=== PATIENT | female | born 1970 | race Caucasian/White ===

== ENCOUNTER 2019-10-05 21:41 | Emergency (ER) | payer OTHER, SELFPAY ==
--- NOTE | ~2019-10-05 | CT_ITS ---
EXAMINATION: CT abdomen pelvis wo/w con DATE: 10/06/2019 00:07 INDICATION: Hematuria TECHNIQUE: Computed tomography (CT) of the abdomen and pelvis was performed without and subsequently with 130 cc Omnipaque 350 intravenous contrast. Automated exposure control and iterative reconstructi on technique were employed. Exam dose: 1894.00 mGy-cm total exam DLP. COMPARISON: None. FINDINGS: Mild discoid atelectasis or scarring at the lung bases. Heart size is within normal range. No pericardial or pleural effusion. Moderate size hiatal hernia. Gallbladder is distended. There is a stone at the gallbladder neck and multiple stones within the bod y of the gallbladder. No gallbladder wall thickening. No pericholecystic fluid or stranding. No bile duct or pancreatic duct dilatation. No hepatic or pancreatic or splenic space-occupying mass lesion. Normal morphology of the adrenal gla nds. No urinary tract calculus or hydroureteronephrosis. No renal space occupying mass lesion or filling d efect of the renal collecting systems is detected. Moderate diffuse bladder wall thickening. There is an approximately 3 cm irregular filling defect of the posterior wall of the urinary bladder, with multiple finger-like projections, suspicious for blad quynh neoplasm. Urology consultation is recommended. Normal caliber of the abdominal aorta. No intraperitoneal or retroperitoneal or pelvic mass lesion or adenopathy or ascites is noted otherwise. There is a prominent amount of fecal material in the colon but no bowel obstruction is evident. No in traperitoneal free air. Diffuse idiopathic skeletal hyperostosis of the thoracic spine. Multilevel degenerative disc disease of the lumbar spine. No suspicious osteolytic or osteoblastic lesions are noted. IMPRESSION: Approximately 3 cm irregular filling defect of the posterior wall of the urinary bladder , suspicious for bladder neoplasm. Urology consultation is recommended. Cholelithiasis; the gallbladder is distended, with a stone at the gallbladder neck, but no gallbladde r wall thickening or pericholecystic stranding or fluid. Moderate hiatal hernia Dr. Almonte informed emergency room physician Dr. Niall Jones of the posterior bladder wall mass and recommendation for urology consultation on 10/06/2019 at 0700 hours Reviewed, dictated and finalized at [facility] Reviewed, dictated and finalized at [facility] [employer] IMPRESSION: Approximately 3 cm irregular filling defect of the posterior wall of the urinary bladder, suspicious for bladder neoplasm. Urology consultation i s recommended. Cholelithiasis; the gallbladder is distended, with a stone at the gallbladder n jaron, but no gallbladder wall thickening or pericholecystic stranding or fluid. Moderate hiatal hernia Dr. Almonte informed emergency room physician Dr. Niall Jones of the posterior bladder wall mass and recommendation for urology consultation on 10/06/2019 at 0 700 hours
[2019-10-05 21:42] VITALS: BP 135/85; PULSE 110; RESP 16; TEMP 36.8; O2SAT 100
--- NOTE | 2019-10-05 22:12 | ED.FEMALEGU ---
HPI - Female Genitourinary General Chief complaint: Urogenital-Female Stated complaint: burning urination Time Seen by Provider: 10/05/19 22:12 Source: patient Mode of arrival: ambulatory Limitations: no limitations History of Present Illness HPI Narrative: A 49 y/o female presents to the ED with c/o hematuria and dysuria since 6:00 PM. Pt states the urine is bright red with some clots. Pt's LNMP was 5 days ago. Pt is not on a blood thinner but notes that she takes iron supplements. She denies back pain, ABD pain, N/V, a fever, and a PMHx of a UTI. Onset (ago): hour(s) (6:00 PM) Urinary symptoms: Dysuria and Hematuria Date of Last Menstrual Period: 09/30/19 Related Data Allergies Allergy/AdvReac Type Severity Reaction Status Date / Time No Known Allergies Allergy Verified 09/10/19 10:31 Review of Systems Review of Systems: All systems reviewed & are unremarkable except as noted in HPI and below Constitutional: Comments: Denies: a fever Gastrointestinal: Gastrointestinal: Denies abdominal pain, Denies nausea and Denies vomiting Genitourinary: Genitourinary: Reports hematuria and Reports dysuria Musculoskeletal: Musculoskeletal: Denies back pain PMFSH Past Medical History Medical History (Updated 10/06/19 @ 00:48 by Alisha Lyn MD) Bilateral knee pain Degenerative joint disease of knee HLD (hyperlipidemia) HTN (hypertension) Sinus problem Vision abnormalities Surgical History Surgical History (Updated 10/05/19 @ 22:17 by Mabel Johnson) Previous section Family History Family History Other Diabetes mellitus Hypertension Social History Social History Smoking status: Former smoker Smoking end date: 08/26/97 Alcohol intake: current Comments No PCP on file. Exam Narrative: Exam Narrative: GENERAL: Well-appearing, well-nourished, and in no acute distress. HEAD: Normocephalic, atraumatic EYES: PERRLA and EOMI, conjunctiva clear without discharge THROAT:Mucous membranes moist, Oropharynx normal without erythema, exudate, peritonsillar swelling or fluctuance NECK: Supple, without lymphadenopathy or mass RESPIRATORY: No respiratory distress, Airway patent, Respirations non-labored, Clear to auscultation without rales, rhonchi or wheeze HEART: Regular rate and rhythm. No murmur heard. Normal peripheral pulses. ABDOMEN: Soft, nontender, nondistended, normal active bowel sounds. No masses. No rebound or guarding, No organomegaly. EXTREMITIES: No edema, normal strength with full range of motion. SKIN: Warm, dry, normal color without rash NEURO: Alert and oriented x3. CN 2-12 grossly intact. No focal deficits. PSYCH: Normal mood and affect. Course Reevaluation(s) Reevaluation #1: Patient presented with hematuria. I discussed CT did not show any masses to explain hematuria. Will place on antibiotics a refer to urologist. I also discussed CT showing gallstones. She is asymptomatic at this time for biliary colic. Date: 10/06/19 Time: 00:44 Vital Signs Vital signs: Vital Signs Temperature 98.3 F 10/05/19 21:42 Pulse Rate 110 H 10/05/19 21:42 Respiratory Rate 16 10/05/19 21:42 Blood Pressure 135/85 10/05/19 21:42 Pulse Oximetry 100 10/05/19 21:42 Temperature 98.2 F 10/06/19 01:06 Pulse Rate 88 10/06/19 01:06 Respiratory Rate 16 10/06/19 01:06 Blood Pressure 114/60 10/06/19 01:06 Pulse Oximetry 97 10/06/19 01:06 MDM - Female Genitourinary Lab Data Result diagrams: 10/05/19 22:49 10/05/19 22:49 Labs: Lab Results 10/05/19 10/05/19 10/05/19 Range/Units 22:01 22:49 22:49 WBC 10.3 H (4.5-10.0) K/mm3 RBC 4.13 L (4.2-5.4) M/mm3 Hgb 13.3 (12.0-15.0) g/dL Hct 41.7 (37.0-47.0) % MCV 101.0 H (80-100) fl MCH 32.2 (26-34) pg MCHC 31.9 L (32-36) g/dl RDW 13.3 (11.5-14.5
[2019-10-05 22:14] LABS: Add Urine Microscopic? YES; Appearance Urine Turbid (Clear); Bilirubin Urine Negative (Negative); Blood Urine 3+ (Negative); Color Urine Yellow (Yellow); Glucose Urine UA 1+ mg/dL (Negative); Ketones Urine 1+ mg/dL (Negative); Leukocyte Esterase Ur Negative LEU/UL (Negative); Nitrate Urine Negative (Negative); Protein Urine 2+ mg/dL (Negative); Specific Grav Ur 1.027 (1.001-1.035); Urobilinogen Urine Negative mg/dL (<2.0)
[2019-10-05 22:52] VITALS: BP 128/82; PULSE 102; RESP 18; O2SAT 99
[2019-10-05 23:02] LABS: Basophils Percent Auto 0.2 % (0.2-1.2); Eosinophils Absolute Auto 0.3 K/mm3 (0-0.3); Eosinophils Percent Auto 2.4 % (0-4.4); Hematocrit 41.7 % (37.0-47.0); Hemoglobin 13.3 g/dL (12.0-15.0); Immature Granulocyte Absolute 0.03 K/mm3 (0.00-0.031); Immature Granulocyte Percent A 0.3 % (0-0.5); Lymphocytes Absolute Auto 1.39 K/mm3 (0.9-3.2); Lymphocytes Percent Auto 13.5 % (18.3-44.2); Mean Corpuscular HGB Conc 31.9 g/dl (32-36); Mean Corpuscular Hemoglobin 32.2 pg (26-34); Mean Platelet Volume 11.8 fl (7.4-10.4); Monocytes Absolute Auto 0.6 K/mm3 (0.1-0.6); Monocytes Percent Auto 5.8 % (2.6-8.5); Neutrophils Percent Auto 77.8 % (45.5-73.1); Platelet Count Result 219 k/mm3 (150-375); Red Blood Count 4.13 M/mm3 (4.2-5.4); Red Cell Distribution Width 13.3 % (11.5-14.5); White Blood Count 10.3 K/mm3 (4.5-10.0)
[2019-10-05 23:12] LABS: Prothrombin Time 12.7 Seconds (11.1-14.7)
[2019-10-05 23:13] LABS: Partial Thromboplastin Time 30.8 SECONDS (22.3-36.8)
[2019-10-05 23:17] LABS: Alanine Aminotransferase 23 U/L (4-35); Albumin Level 4.1 g/dL (3.5-5.1); Alkaline Phosphatase 64 U/L (38-126); Aspartate Amino Transferase 22 U/L (14-36); Bilirubin,Total 0.4 mg/dL (0.2-1.3); Blood Urea Nitrogen 15 mg/dL (7-17); Calcium 9.4 mg/dL (8.4-10.2); Carbon Dioxide 25 mmol/L (22-30); Chloride 99 mmol/L (98-107); Estimated Glomerular Filt Rate > 60; Glucose 109 mg/dL (65-105); Potassium 3.8 mmol/L (3.4-5.0); Sodium 136 mmol/L (137-145)
[2019-10-05 23:54] VITALS: BP 114/79; PULSE 101; RESP 18; O2SAT 99
[2019-10-06 00:29] VITALS: BP 128/68; PULSE 89; RESP 18; O2SAT 96
[2019-10-06 01:06] VITALS: BP 114/60; PULSE 88; RESP 16; TEMP 36.8; O2SAT 97
== END 2019-10-06 01:08 | disposition home or self-care (01) ==
PROVIDERS: Emergency Medicine; Emergency Provider General Practice
DX: N30.91 Cystitis, unspecified with hematuria (principal); K80.20 Calculus of gallbladder without cholecystitis without obstruction; I10 Essential (primary) hypertension; E78.5 Hyperlipidemia, unspecified; M17.10 Unilateral primary osteoarthritis, unspecified knee; Z87.891 Personal history of nicotine dependence
CPT/HCPCS: 36415; 74178; 80053; 81001; 81025; 85025; 85610; 85730; 99284; A9270; Q9967